=== PATIENT | female | born 1985 | race Caucasian/White ===

== ENCOUNTER 2017-03-03 17:11 | Emergency (ER) | payer BC, MEDICAID ==
[~2017-03-03] VITALS: Ht 162.6 cm; Wt 93.4 kg
[~2017-03-03 17:11] MED LIST: IBUP800T23 PO
[2017-03-03 17:19] VITALS: BP 126/87; PULSE 81; RESP 16; TEMP 98.2; O2SAT 99
--- NOTE | 2017-03-03 17:35 | PD ---
HPI Chief Complaint: Chest Pain Time Seen by Provider: 17:22 Travel History International Travel<30 days: No Contact w/Intl Traveler<30days: No Traveled to known affect area: No History of Present Illness HPI This 31-year-old female complaining of left posterior chest pain. This pain has been going on for about 5 days. It's worse when she takes a deep breath also some time she's noticed it when she is been lifting things. She has not been coughing. She smokes half a pack of cigarettes a day. She feels like she is short of breath at times. She has no history of blood clots. There is been no recent injury. Pain is been fairly constant. PFSH Past Medical History Medical History: Denies Significant Hx Diminished Hearing: No ?: Not LMP: iud Past Surgical History Section: Yes (X2) Gynecologic Surgery: Yes ( ) Social History Alcohol Use: No Tobacco Use: Yes (/2 PPD) Substance Use: No Allergies-Medications (Allergen,Severity, Reaction): Coded Allergies: Cipro (Verified Allergy, Intermediate, RASH , 03/03/17) Reported Meds & Prescriptions Reported Meds & Active Scripts Active No Active Prescriptions or Reported Medications Review of Systems General / Constitutional: No: Fever, Chills Eyes: No: Diploplia, Blurred Vision HENT: No: Headaches, Vertigo Cardiovascular: Positive: Chest Pain or Discomfort, No: Palpitations, Irregular Rhythm Respiratory: Positive: Shortness of Breath, Pleuritic Pain, No: Hemoptysis Gastrointestinal: No: Nausea, Vomiting, Diarrhea Genitourinary: No: Urgency, Frequency Musculoskeletal: No: Myalgias, Arthralgias Skin: No Rash, No Itching Neurologic: No: Weakness, Dizziness Psychiatric: No: Anxiety Physical Exam Narrative GENERAL well-developed female SKIN: Focused skin assessment warm/dry. HEAD: Atraumatic. Normocephalic. EYES: Pupils equal and round. No scleral icterus. No injection or drainage. ENT: No nasal bleeding or discharge. Mucous membranes pink and moist. NECK: Trachea midline. No JVD. CARDIOVASCULAR: Regular rate and rhythm. No murmur appreciated. RESPIRATORY: No accessory muscle use. Clear to auscultation. Breath sounds equal bilaterally. There is no chest wall tenderness GASTROINTESTINAL: Abdomen soft, non-tender, nondistended. Hepatic and splenic margins not palpable. MUSCULOSKELETAL: No obvious deformities. No clubbing. No cyanosis. No edema. No pain with compression of the calves NEUROLOGICAL: Awake and alert. No obvious cranial nerve deficits. Motor grossly within normal limits. Normal speech. PSYCHIATRIC: Appropriate mood and affect; insight and judgment normal. Data Data Last Documented VS Vital Signs Date Time Temp Pulse Resp B/P Pulse Ox O2 Delivery O2 Flow Rate FiO2 03/03/17 17:19 98.2 81 16 126/87 99 Orders Complete Blood Count With Diff (03/03/17 17:30) Basic Metabolic Panel (Bmp) (03/03/17 17:30) Troponin I (03/03/17 17:30) D-Dimer (03/03/17 17:30) Chest, Pa & Lat (03/03/17 17:30) Ed Urine Pregnancytest Poc (03/03/17 17:53) Labs Laboratory Tests Test 03/03/17 17:45 White Blood Count 12.6 TH/MM3 Red Blood Count 4.87 MIL/MM3 Hemoglobin 14.4 GM/DL Hematocrit 42.5 % Mean Corpuscular Volume 87.3 FL Mean Corpuscular Hemoglobin 29.5 PG Mean Corpuscular Hemoglobin 33.8 % Concent Red Cell Distribution Width 11.5 % Platelet Count 373 TH/MM3 Mean Platelet Volume 7.4 FL Neutrophils (%) (Auto) 66.9 % Lymphocytes (%) (Auto) 24.1 % Monocytes (%) (Auto) 7.1 % Eosinophils (%) (Auto) 1.5 % Basophils (%) (Auto) 0.4 % Neutrophils # (Auto) 8.4 TH/MM3 Lymphocytes # (Auto) 3.0 TH/MM3 Monocytes # (Auto) 0.9 TH/MM3 Eosinophils # (Auto) 0.2 TH/MM3 Basophils # (Auto) 0.1 TH/MM3 CBC Comment DIFF FINAL Differential Comment D-Dimer Quantitative (PE/DVT) 0.26 MG/L FEU Sodium Level 138 MEQ/L Potassium Level 3.6 MEQ/L Chloride Level 104 MEQ/L Carbon Dioxide Level 24.2 MEQ/L Anion Gap 10 MEQ/L Blood Urea Nitrogen 11 MG/DL Creatinine 0.71 MG/DL Estimat Glomerular Filtration 95 ML/MIN Rate Random Glucose 88 MG/DL Calcium Level 8.5 MG/DL Troponin I LESS THAN 0.02 NG/ML MDM Medical Decision Making Medical Screen Exam Complete: Yes Emergency Medical Condition: Yes Medical Record Reviewed: Yes Differential Diagnosis Differential includes chest wall pain, pulmonary embolus, pneumothorax, pneumonia Narrative Course Chest x-ray is negative for pneumonia or pneumothorax. A d-dimer was done and is less than 0.5 so pulmonary embolus is essentially ruled out. I believe this is chest wall pain. Diagnosis Primary Impression: Chest wall pain Scripts No Active Prescriptions or Reported Meds Disposition: DISCHARGE HOME Condition: Stable Pavel Rose MD March 03, 2017 17:35
[2017-03-03 18:02] LABS: AUTOMATED NEUTROPHIL # 8.4 TH/MM3 (1.8-7.7); BASOPHIL # 0.1 TH/MM3 (0-0.2); BASOPHIL % 0.4 % (0.0-2.0); EOSINOPHIL # 0.2 TH/MM3 (0-0.4); EOSINOPHIL % 1.5 % (0.0-4.0); HEMATOCRIT 42.5 % (35.0-46.0); HEMO FLAGS DIFF FINAL; LYMPH % 24.1 % (9.0-44.0); MEAN CELL VOLUME 87.3 FL (80.0-100.0); MEAN CORPUSCULAR HEMOGLOBIN 29.5 PG (27.0-34.0); MEAN CORPUSCULAR HGB CONC 33.8 % (32.0-36.0); MONO % 7.1 % (0.0-8.0); NEUT % 66.9 % (16.0-70.0); PLATELET COUNT 373 TH/MM3 (150-450); RED BLOOD COUNT 4.87 MIL/MM3 (4.00-5.30); RED CELL DISTRIBUTION WIDTH 11.5 % (11.6-17.2); WHITE BLOOD COUNT 12.6 TH/MM3 (4.0-11.0)
--- NOTE | 2017-03-03 18:04 | RADHPO ---
EXAM DATE/TIME: 03/03/2017 17:53 [facility] COMPARISON: No previous studies available for comparison. INDICATIONS : Patient has had chest pain for a week. Patient is a smoker. MEDICAL HISTORY : None. SURGICAL HISTORY : None. ENCOUNTER: Initial ACUITY: 1 week PAIN SCORE: 8/10 LOCATION: Bilateral chest FINDINGS: PA and lateral views of the chest demonstrate the lungs to be symmetrically aerated without evidence of mass, infiltrate or effusion. The cardiomediastinal contours are unremarkable. Osseous structure s are intact. CONCLUSION: Normal examination. Kumar Licona MD on March 03, 2017 at 18:02 Board Certified Radiologist. This report was verified electronically.
[2017-03-03 18:08] LABS: CHLORIDE 104 MEQ/L (98-107); POTASSIUM 3.6 MEQ/L (3.5-5.1); SODIUM (NA) 138 MEQ/L (136-145)
[2017-03-03 18:11] LABS: ANION GAP 10 MEQ/L (5-15); BICARBONATE 24.2 MEQ/L (21.0-32.0)
[2017-03-03 18:12] LABS: BLOOD UREA NITROGEN 11 MG/DL (7-18)
[2017-03-03 18:15] LABS: GLOMERULAR FILTRATION RATE 95 ML/MIN (>89)
[2017-03-03] MEDS ORDERED: HYDR-3533 PO (18:51)
[2017-03-03 18:55] VITALS: BP 120/69
--- NOTE | 2017-03-04 21:41 | EKG ---
Date Performed: 03/03/2017 Time Performed: 17:04:00 PTAGE: 31 years EKG: Sinus rhythm . Normal ECG NO PREVIOUS TRACING DOCTOR: Ervin Plaza Interpretating Date/Time 03/04/2017 21:40:01
== END 2017-03-03 19:04 | disposition home or self-care (01) ==
LOC: PHED 17:11
DX: R07.89 Other chest pain (principal); F17.210 Nicotine dependence, cigarettes, uncomplicated
CPT/HCPCS: 71020; 80048; 84484; 84703; 85025; 85379; 93005; 99283